=== PATIENT | male | born 1975 | race Caucasian/White ===

== ENCOUNTER 2020-04-17 13:09 | Emergency (ER) | payer OTHER, SELFPAY ==
[2020-04-17 13:21] VITALS: BP 136/71; PULSE 90; RESP 16; TEMP 36.4; O2SAT 98
--- NOTE | 2020-04-17 13:30 | ED.DENTAL ---
HPI - Dental/Oral General Chief complaint: Dental/Oral Stated complaint: Foreign Absess/Oral Time Seen by Provider: 04/17/20 13:30 Source: patient and RN notes reviewed Mode of arrival: ambulatory Limitations: no limitations History of Present Illness HPI Narrative: This is a 44 years old male presented office for recurrent dental pain/abscess. He admits to history of bad teeth, currently in the process of getting upper and lower teeth removed completely however he could not get to any dentist or oral surgeon to get it taken care off. For the last few day, his gums has been sore and painful with drooling which is sign of infection per patient. Related Data Home Medications Medication Instructions Recorded Confirmed lisinopril 5 mg PO DAILY 04/17/20 04/17/20 Allergies Allergy/AdvReac Type Severity Reaction Status Date / Time No Known Allergies Allergy Unverified 12/30/18 14:14 Review of Systems Review of Systems: Narrative: CONSTITUTIONAL: Denies fever, chills ENT: Denies rhinorrhea, congestion, sore throat. Reports drooling at times due to gums pain/swelling CARDIOVASCULAR: Denies chest pain RESPIRATORY: Denies dyspnea GASTROINTESTINAL: Denies abdominal pain, nausea, vomiting SKIN: Denies rash MUSCULOSKELETAL: Denies joints pain NEUROLOGIC: Denies lightheaded All other systems reviewed are negative, except as documented in HPI. PMFSH Past Medical History Medical History ADHD History of dental problems Family History Family History Mother Family history of bipolar disorder Father Family history of heart disease in male family member before age 55 Social History Social History Smoking status: Current every day smoker Second hand tobacco smoke exposure: Yes Alcohol intake: never Comments At time of signature, I agree with nursing past medical, surgical, social and family history. There is no relevant family history pertinent to the presenting complaint. Exam Narrative: Exam Narrative: GENERAL: This is a well-nourished, well-developed patient, in no apparent distress. EYES: Sclera and conjunctivae normal ENT: External ears normal. Nose and lips normal. Airway patent.Lower and upper teeth are very carious and the gum appears swollen and erythema. There is no facial swelling, cervical or submandibular lymphadenopathy. CARDIOVASCULAR: Regular rate and rhythm without murmurs, gallops, or rubs. RESPIRATORY: Clear to auscultation. Breath sounds equal bilaterally. No wheezes, rales, or rhonchi. GASTROINTESTINAL: Abdomen soft, non-tender, nondistended. Bowel sounds are active. No hepato-splenomegaly, or palpable masses. No guarding. SKIN: warm, intact with no suspicious lesions or rash, good texture and turgor. NEURO: awake, alert, and oriented to person, place and time. There were no obvious focal neurologic abnormalities. Course Vital Signs Vital signs: Vital Signs Temperature 97.5 F L 04/17/20 13:21 Pulse Rate 90 04/17/20 13:21 Respiratory Rate 16 04/17/20 13:21 Blood Pressure 136/71 04/17/20 13:21 Pulse Oximetry 98 04/17/20 13:21 Temperature 97.5 F L 04/17/20 13:21 Pulse Rate 90 04/17/20 13:21 Respiratory Rate 16 04/17/20 13:21 Blood Pressure 136/71 04/17/20 13:21 Pulse Oximetry 98 04/17/20 13:21 MDM - Dental/Oral MDM Narrative Medical decision making narrative: Discharge instructions reviewed with patient, as well as provided in writing per nursing staff. The instructions also include specific and strict return/GO TO THE ER as well as f/u information. All questions have been answered, and the patient deny any further questions with discharge and discharge plan. Differential Diagnosis Differential diagnosis: Likely gingival abscess, dental caries, toothache, dental abscess, fracture of t
== END 2020-04-17 13:45 | disposition home or self-care (01) ==
PROVIDERS: Emergency Provider Nurse Practitioner; PCP Nurse Practitioner Family
DX: K02.9 Dental caries, unspecified (principal); F17.200 Nicotine dependence, unspecified, uncomplicated; I10 Essential (primary) hypertension
CPT/HCPCS: 99213; G0463

== ENCOUNTER 2021-07-14 15:39 | Emergency (ER) | payer SELFPAY ==
[2021-07-14 15:51] VITALS: BP 123/83; PULSE 110; RESP 16; TEMP 36.1; O2SAT 100
--- NOTE | 2021-07-14 17:50 | PC.NURSE ---
Not in lobby when called.
--- NOTE | 2021-07-14 18:17 | PC.NURSE ---
Not in lobby when called.
== END 2021-07-14 17:50 | disposition left against medical advice (07) ==
LOC: ANHED 18:29
DX: L02.221 Furuncle of abdominal wall (principal)
CPT/HCPCS: 99199

== ENCOUNTER 2024-07-30 04:06 | Emergency (ER) | payer SELFPAY ==
--- NOTE | ~2024-07-30 | XR_ITS ---
PA, oblique, and lateral views of the left third finger CLINICAL HISTORY: Dislocation COMPARISON: 07/30/2024 at 4:25 AM FINDINGS: There is persistent dorsal ulnar direction dislocation versus severe subluxation of the thi rd PIP joint. No fracture seen. Soft tissues are unremarkable. IMPRESSION: Persistent dorsal ulnar dislocation versus severe subluxation of the left third PIP joint. Reviewed, dictated and finalized at location .
--- NOTE | ~2024-07-30 | XR_ITS ---
Left Hand Technique: PA, oblique, and lateral views were obtained. Clinical History: Injury Findings: There is dorsal ulnar dislocation at the third PIP joint. No fracture evident. Remaining leonie int spaces are intact. Impression: Dorsal ulnar dislocation of the third PIP joint. No fracture seen. Reviewed, dictated and finalized at [facility]. Impression: Dorsal ulnar dislocation of the third PIP joint. No fracture seen.
--- NOTE | ~2024-07-30 | XR_ITS ---
EXAMINATION: XR finger 3rd LT min 2V DATE: 07/30/2024 09:22 INDICATION: Left hand third digit pain. TECHNIQUE: 2 views of left hand third digit were obtained. COMPARISON: Left hand third digit radiographs at 8:20 AM FINDINGS: There is persistence dorsal ulnar dislocation of third middle phalanx with respect to the p roximal phalanx. There is likely a fracture with impaction of radial aspect of base of third middle p halanx seen on one view. Other joint spaces are normal. IMPRESSION: 1. Persistent dislocation of third proximal interphalangeal joint. 2. Fracture of radial aspect of base of third middle phalanx. Reviewed, dictated and finalized at location []
--- NOTE | ~2024-07-30 | XR_ITS ---
EXAMINATION: XR finger 3rd LT min 2V DATE: 07/30/2024 09:58 INDICATION: Left hand third digit dislocation status post reduction. TECHNIQUE: 2 views of left hand third digit were obtained. COMPARISON: Radiographs at 9:16 AM FINDINGS: There is now normal alignment at the proximal interphalangeal joint. There is a 3 mm avulsi on fracture fragment originating from palmar radial base of third middle phalanx with 4 mm distractio n. Other joint spaces are normal. IMPRESSION: 1. Normal alignment at the proximal interphalangeal joint. 2. Avulsion fracture of palmar radial base of third middle phalanx. Reviewed, dictated and finalized at location []
[2024-07-30 04:07] VITALS: BP 106/76; PULSE 113; RESP 26; TEMP 36.6; O2SAT 100
[2024-07-30 06:28] VITALS: BP 164/107; PULSE 87; RESP 18; TEMP 36.4; O2SAT 100
--- NOTE | 2024-07-30 08:00 | ED.GENADULT ---
HPI - General Adult General Chief complaint: Extremity Injury, Upper Stated complaint: broke finger on garage door Time Seen by Provider: 07/30/24 06:58 History of Present Illness HPI narrative: 49-year-old male present to the emergency department for evaluation for a left middle finger PIP dislocation. Patient states he was trying to close his garage door and his finger got stuck pain Related Data Home Medications Medication Instructions Recorded Confirmed lisinopril 5 mg tablet 5 mg PO DAILY 04/17/20 04/17/20 Allergies Allergy/AdvReac Type Severity Reaction Status Date / Time No Known Allergies Allergy Unverified 12/30/18 14:14 Review of Systems Review of Systems: All systems reviewed & are unremarkable except as noted in HPI and below PMFSH Past Medical History Medical History (Updated 07/30/24 @ 10:54 by Pillo Mims MD) ADHD History of dental problems Family History Family History Mother Family history of bipolar disorder Father Family history of heart disease in male family member before age 55 Social History Social History Smoking status: Current every day smoker Second hand tobacco smoke exposure: Yes Alcohol intake: never Exam Narrative: APPEARANCE: Well appearing, no pain, no distress, well-nourished. HEAD: normocephalic, atraumatic. EYES: PERRLA/EOMI, conjunctivae clear. NOSE: Normal no drainage EARS:TMS clear with good light reflex. THROAT: Pharynx clear, no exudate. NECK: Supple. No adenopathy, no masses. RESPIRATORY: Airway patent, respirations nonlabored. Clear to auscultation bilaterally, no rales, rhonchi, wheezing. CARDIOVASCULAR: Regular rate and rhythm without murmurs rubs or gallops. ABDOMINAL: Soft, nontender, nondistended, normal bowel sounds MUSCULOSKELETAL: finger swelling dislocation NEURO: Alert. Cranial nerves II through XII intact. grossly intact SKIN: Warm, dry. Normal Color Course Vital Signs Vital signs: Vital Signs Temperature 97.8 F 07/30/24 04:07 Pulse Rate 113 H 07/30/24 04:07 Respiratory Rate 26 H 07/30/24 04:07 Blood Pressure 106/76 07/30/24 04:07 Pulse Oximetry 100 07/30/24 04:07 Oxygen Delivery Room Air 07/30/24 04:07 Temperature 97.8 F 07/30/24 10:28 Pulse Rate 88 07/30/24 10:28 Respiratory Rate 16 07/30/24 10:28 Blood Pressure 147/91 H 07/30/24 10:28 Pulse Oximetry 100 07/30/24 10:28 Oxygen Delivery Room Air 07/30/24 04:07 Procedures Orthopedic Joint Reduction Joint #1: Time Out Performed: Yes Side: left Joint Reduction Location: finger Analgesia: nerve block Pre-Procedure Neuro Vascular Exam: normal Local Anesthesia: lidocaine 1% Amount of anesthesic used (mL): 3 Shoulder Technique Used (if applicable): traction/counter-traction Technique used: traction/counter-traction Post-reduction neuro exam: no change Post-reduction vascular: no change Post Reduction X-Ray Obtained: Yes Post Reduction X-Ray Results: not reduced Splint Applied: Yes Patient Tolerated Procedure: no complications Additional Comments: [address] attempts [address] Lara to reduce the finger and additionally [address] attempts were made [address] Dr[address] Mims. Ultimately the finger was reduced Medical Decision Making Vital Signs Vital Signs: Vital Signs Temperature 97.8 F 07/30/24 04:07 Pulse Rate 113 H 07/30/24 04:07 Respiratory Rate 26 H 07/30/24 04:07 Blood Pressure 106/76 07/30/24 04:07 Pulse Oximetry 100 07/30/24 04:07 Oxygen Delivery Room Air 07/30/24 04:07 Temperature 97.8 F 07/30/24 10:28 Pulse Rate 88 07/30/24 10:28 Respiratory Rate 16 07/30/24 10:28 Blood Pressure 147/91 H 07/30/24 10:28 Pulse Oximetry 100 07/30/24 10:28 Oxygen Delivery Room Air 07/30/24 04:07 Discharge Plan Discharge Clinical Impression: Dislocation of finger Qualifiers: Encounter type: initial encounter Qualified Code(s): S63.259A - Unspecified dislocation of unspecified finger, initial encounter Patient Disposition: Home, Self-Care Condition: Stable Instructions: Antibiotic Form, Splint Care (ED), Finger Dislocation (ED) Additional Instructions: Splint care as directed. Have close follow-up with Hand surgery. Tylenol and ibuprofen for pain control. If you have any worsening symptoms please call or return to the emergency department. Prescriptions: No Action lisinopril 5 mg Tablet 5 mg PO DAILY amoxicillin 500 mg tablet 500 mg PO Q8H 10 Days Qty: 30 0RF Follow-up/Referrals: Pillo Mims MD [Physician] - UNKNOWN,DOCTOR [Primary Care Provider] -
[2024-07-30 09:02] VITALS: BP 137/86; PULSE 88; RESP 20; O2SAT 100
--- NOTE | 2024-07-30 09:03 | PC.NURSE ---
Dr. Mims at bedside
[2024-07-30 10:28] VITALS: BP 147/91; PULSE 88; RESP 16; TEMP 36.6; O2SAT 100
--- NOTE | 2024-07-30 10:51 | WPDCN ---
Assessment and Plan Assessment and plan (1) Fracture of phalanx of left middle finger: Qualifiers: Encounter type: initial encounter Fracture type: closed Phalanx: middle Fracture alignment: displaced Qualified Code(s): S62.623A - Displaced fracture of middle phalanx of left middle finger, initial encounter for closed fracture Code(s): S62.603A - Fracture of unspecified phalanx of left middle finger, initial encounter for closed fracture Status: Acute Assessment and Plan: 49yo male with left middle finger pipjoint fracture dislocation. xray images reviewed and discussed impression, diagnosis with patient and juanita to attempt further reduction. initial reduction and splinting was unsuccessful as noted on xray so attempted a second time which was successful. In addition to successful reduction of the joint a dorsal extension block splint was applied. I discussed rec with patient for splint use and will begin early range of motion and therapy. Plan;1) joint reduced 2) OT 3) splint 4) f/u in office 1-2 weeks (2) Dislocation of finger: Qualifiers: Encounter type: initial encounter Qualified Code(s): S63.259A - Unspecified dislocation of unspecified finger, initial encounter Code(s): S63.259A - Unspecified dislocation of unspecified finger, initial encounter Status: Acute HPI Data of Consult Date/Time: 07/30/24 10:51 Primary Care Provider: UNKNOWN,DOCTOR Consult Narrative Narrative: Jose L Zaragoza is a 49 year old male presented to ER after garage door wrenched his left middle finger resulting in pain and swelling. ER physician attempted reduction but unsuccessful and plastic surgery called for eval and mgmt. no other concerns PMFSH Past Medical History Medical History (Updated 07/30/24 @ 10:54 by Pillo Mims MD) ADHD History of dental problems Family History Family History Mother Family history of bipolar disorder Father Family history of heart disease in male family member before age 55 Social History Social History Smoking status: Current every day smoker Second hand tobacco smoke exposure: Yes Alcohol intake: never Meds Home Medications and Allergies Home Medications Medication Instructions Recorded Confirmed Type amoxicillin 500 mg tablet 500 mg PO Q8H 10 days #30 tabs 04/17/20 Rx lisinopril 5 mg tablet 5 mg PO DAILY 04/17/20 04/17/20 History Allergies Allergy/AdvReac Type Severity Reaction Status Date / Time No Known Allergies Allergy Unverified 12/30/18 14:14 Vital Signs Vital Signs - 24 hr 07/30/24 04:07 07/30/24 06:28 07/30/24 09:02 Temperature 36.6 C 36.4 C Pulse Rate 113 H 87 88 Respiratory Rate 26 H 18 20 Blood Pressure 106/76 164/107 H 137/86 Pulse Oximetry 100 100 100 Oxygen Delivery Room Air 07/30/24 10:28 Temperature 36.6 C Pulse Rate 88 Respiratory Rate 16 Blood Pressure 147/91 H Pulse Oximetry 100 Oxygen Delivery Exam Narrative: Gen: left middle finger edematous with deformity consistent with pipjoint dislocation ROM: fds/fdp/edc appear intact Vascular: Warm and well perfused Sensation: pt had already received digital block in ER before eval so unable to complete sensory exam
== END 2024-07-30 10:30 | disposition home or self-care (01) ==
PROVIDERS: Emergency Provider Emergency Medicine
DX: S63.253A Unspecified dislocation of left middle finger, initial encounter (principal); W23.0XXA Caught, crushed, jammed, or pinched between moving objects, initial encounter
CPT/HCPCS: 26770; 73130; 73140; 99285